=== PATIENT | female | born 1995 | race Caucasian/White ===

== ENCOUNTER 2025-04-09 10:45 | Outpatient (RCR) | payer OTHER, SELFPAY ==
[2025-04-02 13:09] VITALS: BMI 28.5
[2025-04-02 13:10] VITALS: BP 90/56; PULSE 72; TEMP 36.8
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
--- NOTE | 2025-04-03 16:06 | HO.PHP ---
Clients case was opened and reviewed in teams.
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
--- NOTE | 2025-04-09 12:44 | HO.PHP ---
[facility] staff member met with Lisa to discuss advice giving behaviors and encouraged her to reflect on what led her to engage in the program. Lisa appeared agitated and tearful, stating that she is a problem and expressed a desire to discharge . PHP staff member reassured Lisa that she is not a problem and emphasized the program's commitment to supporting her in getting the most out of her treatment experience. Lisa continued to catastrophize and interpreted staff feedback negatively. PHP staff provided ongoing reassurance, clarifying that her interpretation was based on emotional response rather than what was actually said. Lisa shared that it feels true to her because similar patterns have occurred in past relationships. Lisa was encouraged to remain in the program for the rest of the day and suggested that she reassess how she is feeling later on in the day. However, Lisa continued to insist on discharging. [facility] staff member informed Lisa that she has to follow up with her process control manager to discuss further. Lisa was in agreement. [facility] staff member consulted with the staffing program manager, Liz, to clarify next steps. Liz recommended following up with Dr. Rivera to determine if Lisa is medically cleared to discharge. Dr. Rivera confirmed that no medications have been initiated at this time, but expressed a preference for Lisa to return to program tomorrow to complete a proper discharge. [facility] staff member informed Dr. Rivera that Lisa has a piror appointment and is unable to attend the program tomorrow. Liz advised encouraging Lisa to stay in the program for the remainder of the day, allowing time for the team to review her case. Liz also recommended scheduling discharge for Monday, pending medical clearance. If Lisa declines to continue in the program, staff will inform her that this is a voluntary program and choosing to leave at this time would be considered against medical advice. [facility] staff member then returned to meet with Lisa and continued to encourage her to continue in the program to allow the team to further discuss the medical appropriateness. Lisa noted that she feels she has no choice. Lisa continued to insist that she be discharged. PHP staff member relayed to Lisa that she is able to discharge and that this is a voluntary program and to know that if she decides to leave it will be against medical advice. Lisa was receptive. Lisa expressed that group therapy does not feel helpful and questioned the value of the program stating, If I can't make friends here, then what's the point? Lisa feels as though she receives more meaningful support from her individual therapist, noting that the therapist listens and provides validation in a way that she feels the group did not. [facility] staff member validated Lisa's experience while exploring potential barriers to connecting in group setting. Lisa continued to engage in negative self-talk and opposed to addressing or processing what brought her to program, she stated that the program is taking time away from her work and having an income coming in, along with causing wear and tear on her car. [facility] staff member collected her appointment dates and times with her OP providers and assessed safety prior to discharging. There were no safety concerns presented.
== END 2025-04-09 23:59 | disposition home or self-care (01) ==
LOC: HO.PHPA 10:45
PROVIDERS: Visit Provider Psychiatry & Neurology Psychiatry
DX: F43.10 Post-traumatic stress disorder, unspecified (principal); F33.2 Major depressive disorder, recurrent severe without psychotic features; F41.1 Generalized anxiety disorder; Z79.899 Other long term (current) drug therapy
CPT/HCPCS: 90791; 90853

== ENCOUNTER → 2025-04-09 10:45 | Outpatient (BNV) | payer OTHER, SELFPAY | PROVIDERS: Visit Provider Psychiatry & Neurology Psychiatry | DX: F33.2 Major depressive disorder, recurrent severe without psychotic features (principal); F41.1 Generalized anxiety disorder; F43.11 Post-traumatic stress disorder, acute | CPT/HCPCS: 99499 ==